=== PATIENT | female | born 1985 | race Two or more races ===

== ENCOUNTER 2020-10-02 15:19 | Emergency (ER) | payer OTHER ==
[~2020-10-02] VITALS: Ht 165.1 cm; Wt 68.0 kg
[2020-10-02] MEDS ORDERED: PRENATABS RX T1 EACH PO (15:31)
== END 2020-10-02 20:46 | disposition home or self-care (01) ==
LOC: ER 15:19
DX: O21.0 Mild hyperemesis gravidarum (principal); O26.891 Other specified pregnancy related conditions, first trimester; K29.70 Gastritis, unspecified, without bleeding; R10.2 Pelvic and perineal pain; Z34.01 Encounter for supervision of normal first pregnancy, first trimester

== ENCOUNTER 2020-10-19 17:04 | Emergency (ER) | payer OTHER ==
[~2020-10-19] VITALS: Ht 165.1 cm; Wt 68.0 kg
[~2020-10-19 17:04] MED LIST: PRENATABS RX T1 EACH PO
[2020-10-19] MEDS ORDERED: FOLIC ACID0.4 MG (17:41)
== END 2020-10-19 21:36 | disposition home or self-care (01) ==
LOC: ER 17:04
DX: O21.1 Hyperemesis gravidarum with metabolic disturbance (principal); Z3A.01 Less than 8 weeks gestation of pregnancy

== ENCOUNTER 2020-12-20 22:27 | Inpatient (IN) | payer OTHER ==
[~2020-12-20] VITALS: Ht 165.1 cm; Wt 72.6 kg
[~2020-12-20 22:27] MED LIST changes: -PRENATAL TABLE1 EAC1 PO
[2020-12-21] MEDS ORDERED: PRENATAL TABLE1 EAC1 PO (09:33)
== END 2020-12-23 15:37 | disposition home or self-care (01) | DRG 833 ==
LOC: OBS/DEL 22:27 → LDR 12-21 09:14
PROVIDERS: ADMIT Obstetrics & Gynecology; ATTEND Obstetrics & Gynecology
PROC: 4A1HXFZ Monitoring of Products of Conception, Cardiac Rhythm, External Approach (ICD-10-PCS; principal; 2020-12-21)
PROC: BY4CZZZ Ultrasonography of Second Trimester, Single Fetus (ICD-10-PCS; 2020-12-21)
DX: O47.02 False labor before 37 completed weeks of gestation, second trimester (principal); Z3A.19 19 weeks gestation of pregnancy

== ENCOUNTER → 2020-12-20 | Emergency (ER) | payer OTHER ==
[~2020-12-20] VITALS: Ht 165.1 cm; Wt 72.6 kg
[~2020-12-20] MED LIST changes: +FOLIC ACID0.4 MG; +PRENATAL TABLE1 EAC1 PO
== END | disposition still patient (30) ==
LOC: ER 18:33
DX: O60.02 Preterm labor without delivery, second trimester (principal); Z3A.19 19 weeks gestation of pregnancy

== ENCOUNTER 2021-05-05 10:30 | Inpatient (IN) | payer OTHER ==
[~2021-05-05] VITALS: Ht 165.1 cm; Wt 90.3 kg
[~2021-05-05 10:30] MED LIST changes: +PRENATAL TABLE1 EAC1 PO
== END 2021-05-10 14:16 | disposition home or self-care (01) | DRG 788 ==
LOC: OB/GYN 05-07 10:30 → O/R 05-07 10:38 → OB/GYN 05-07 10:38
PROVIDERS: ADMIT Obstetrics & Gynecology; ATTEND Obstetrics & Gynecology
PROC: 4A1HXFZ Monitoring of Products of Conception, Cardiac Rhythm, External Approach (ICD-10-PCS; 2021-05-07)
PROC: 10D00Z1 Extraction of Products of Conception, Low, Open Approach (ICD-10-PCS; principal; 2021-05-07 16:15)
DX: O34.211 Maternal care for low transverse scar from previous cesarean delivery (principal); Z86.16 Personal history of COVID-19; Z37.0 Single live birth; Z3A.39 39 weeks gestation of pregnancy

== ENCOUNTER 2025-04-03 19:55 | Emergency (ER) | payer OTHER ==
[~2025-04-03] VITALS: Ht 167.6 cm; Wt 59.0 kg
== END 2025-04-03 23:46 | disposition home or self-care (01) ==
LOC: ER 20:13
DX: Z34.90 Encounter for supervision of normal pregnancy, unspecified, unspecified trimester (principal); Z3A.01 Less than 8 weeks gestation of pregnancy; N92.0 Excessive and frequent menstruation with regular cycle; Z88.6 Allergy status to analgesic agent